=== PATIENT | female | born 2000 | race Two or more races ===

== ENCOUNTER 2018-02-17 19:50 | Emergency (ER) | payer MEDICAID ==
[~2018-02-17] VITALS: Ht 162.6 cm; Wt 99.8 kg
[2018-02-18 00:53] VITALS: BP 145/99
== END 2018-02-18 01:03 | disposition home or self-care (01) ==
LOC: ER 19:50
DX: M54.2 Cervicalgia (principal); M62.838 Other muscle spasm; R51 Headache; V89.2XXA Person injured in unspecified motor-vehicle accident, traffic, initial encounter; Y93.89 Activity, other specified; Y92.89 Other specified places as the place of occurrence of the external cause; Y99.8 Other external cause status
CPT/HCPCS: 70450; 71045; 72125; 72131; 74176